=== PATIENT | male | born 1955 ===

== ENCOUNTER 2017-10-30 14:38 | Emergency (ER) | payer MEDICAID ==
[~2017-10-30] VITALS: Ht 180.3 cm; Wt 83.5 kg
[2017-10-30 14:41] VITALS: Ht 180.3 cm; Wt 83.5 kg
[2017-10-30 17:01] LABS: BASOPHIL % 0.7 % (0-2); PLATELET COUNT 238 x10^3mcL (130-400); RED CELL DISTRIBUTION WIDTH 13.2 % (11.5-14.5)
[2017-10-30 17:14] LABS: CALCIUM 8.6 mg/dL (8.5-10.1); CHLORIDE SERUM 109 mmol/L (98-107); CREATININE SERUM 0.8 mg/dL (0.7-1.3); GFR1 > 60 mL/min; GLUCOSE SERUM 130 mg/dL (74-106); SODIUM SERUM 147 mmol/L (136-145)
[2017-10-30 17:18] LABS: ALKALINE PHOSPHATASE 91 U/L (46-116); ALT/SGPT 26 U/L (16-63); AST/SGOT 19 U/L (15-37); BILIRUBIN TOTAL 0.25 mg/dL (0.20-1.00); TOTAL PROTEIN, SERUM 6.4 g/dL (6.4-8.2)
[2017-10-30 17:19] LABS: ALBUMIN 3.3 g/dL (3.4-5.0)
[2017-10-30 19:11] VITALS: BP 148/97
== END 2017-10-30 19:11 | disposition home or self-care (01) ==
LOC: ED 14:38
PROVIDERS: Emergency Medicine
DX: I16.0 Hypertensive urgency (principal); I10 Essential (primary) hypertension; E11.9 Type 2 diabetes mellitus without complications
CPT/HCPCS: 36415; Q0092